=== PATIENT | female | born 1990 ===

== ENCOUNTER 2018-08-12 18:36 | Emergency (ER) | payer SELFPAY ==
[2018-08-12 21:09] VITALS: BP 130/82; PULSE 67; RESP 20; TEMP 99; O2SAT 99
--- NOTE | 2018-08-12 21:57 | ED PDOC ---
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 Otherwise, denies urinary/fecal incontinence, urinary symptoms, abdominal pain, numbness, and tingling, hematuria, h/o IVDA or malginancy LNMP: 07/23/18 PMD: none provided Past Medical History Reviewed: Historical Data, Nursing Documentation, Vital Signs Vital Signs: Last Vital Signs Temp 99 F 08/12/18 21:08 Pulse 67 08/12/18 21:08 Resp 20 08/12/18 21:08 BP 130/82 08/12/18 21:08 Pulse Ox 99 08/12/18 21:08 - Medical History PMH: No Chronic Diseases - Surgical History Surgical History: No Surg Hx - Family History Family History: States: Unknown Family Hx - Social History Current smoker - smoking cessation education provided: No Alcohol: None Drugs: Denies - Home Medications Home Medications: Ambulatory Orders Medication Instructions Recorded Cyclobenzaprine [Cyclobenzaprine 10 mg PO TID PRN #12 tab 08/12/18 HCl] Naproxen 500 mg PO BID PRN #20 tab 08/12/18 - Allergies Allergies/Adverse Reactions: Allergies Allergy/AdvReac Type Severity Reaction Status Date / Time No Known Allergies Allergy Verified 08/12/18 21:08 Review of Systems ROS Statement: Except As Marked, All Systems Reviewed And Found Negative Gastrointestinal: Negative for: Abdominal Pain Genitourinary Female: Negative for: Dysuria, Frequency, Incontinence, Hematuria Musculoskeletal: Positive for: Back Pain (lower, mostly right, radiating into buttocks and groin) Neurological: Negative for: Numbness (or tingling) Physical Exam - Reviewed Nursing Documentation Reviewed: Yes Vital Signs Reviewed: Yes - Physical Exam Comments: GENERAL APPEARANCE: Patient is awake, alert, oriented x 3, in no obvious distress. SKIN: Warm, dry; (-) cyanosis. EYES: (-) conjunctival pallor. ENMT: Mucous membranes moist. NECK: (-) tenderness, (-) stiffness, (-) lymphadenopathy. CHEST AND RESPIRATORY: (-) rales, (-) rhonchi, (-) wheezes; breath sounds equal bilaterally. HEART AND CARDIOVASCULAR: (-) irregularity; (-) murmur, (-) gallop. ABDOMEN AND GI: Soft; (-) tenderness; (-) palpable mass. BACK: (+) right sided para spinal tenderness going into gluteus, (+) mild midline tenderness from L2-L4, (-) deformity. Straight leg raising (-) bilaterally. EXTREMITIES: (-) deformity. Distal pulses good bilaterally, no groin or hip tenderness, (-)saddle anesthesia NEURO AND PSYCH: Mental status as above. molding associate: intact. Intact sensation bilaterally; normal strength in extension of the knees, plantar and dorsiflexion of the toes. DTRs symmetric. - ECG O2 Sat by Pulse Oximetry: 99 (RA) Pulse Ox Interpretation: Normal Medical Decision Making Medical Decision Making: Time: 2132 Initial Impression: back pain Initial Plan: --U-preg --Lumbar spine XR --Flexeril 10mg PO and Toradol 30mg IM (pt not driving) --Reevaluation 2319 Xr reviewed by me no acute fx, dislocation or DJD on re eval pt is feeling better discussed results, diagnosis, treatment, return precautions and f/u with pt who is understanding, in agreement and stable for dc Scribe Attestation: Documented by Gena Jansen, acting as a scribe for Derrek Paul PA-C. Provider Scribe Attestation: All medical record entries made by the Scribe were at my direction and personally dictated by me. I have reviewed the chart and agree that the record accurately reflects my personal performance of the history, physical exam, medical decision making, and the department course for this patient. I have also personally directed, reviewed, and agree with the discharge instructions and disposition. Disposition - Clinical Impression Clinical Impression: Low back pain, Back strain - Patient ED Disposition Is Patient to be Admitted: No Counseled Patient/Family Regarding: Studies Performed, Diagnosis, Need For Followup, Rx Given - Disposition Referrals: [facility] [Outside] Golden Schuler III, MD [Staff Provider] - Disposition: Routine/Home Disposition Time: 23:27 Condition: IMPROVED Additional Instructions: Regrese a la ED para sntomas nuevos o que empeoran, fiebre> 100.4, entumecimiento u hormigueo, incontinencia urinaria o intestinal, no puede caminar. Sabas un seguimiento con la clnica u ortopedista en 3-5 cornelius. Descanse, evite levantar objetos pesados ??o realizar actividades extenuantes janiya jhonatan semana. Use almohadillas trmicas y duchas de [place] para ayudar a calmar los msculos. [employer] los medicamentos segn lo prescrito. No conduzca ni rich alcohol cuando est tomando flexeril.Return to ED for new or worsening symptoms, fever >100.4, numbness or tingling, urinary or bowel incontinence, unable to walk. Follow up with the clinic or and orthopedist in 3-5 days. Rest, avoid heavy lifting or strenuous activity for one week. Use heating pads and hot showers to help soothe muscles. Take medications as prescribed. Do not drive or drink alcohol when taking flexeril Prescriptions: Cyclobenzaprine [Cyclobenzaprine HCl] 10 mg PO TID PRN #12 tab PRN Reason: Muscle Spasm Naproxen 500 mg PO BID PRN #20 tab PRN Reason: Pain, Moderate (4-7) Instructions: Muscle Strain, Low Back Pain in Adults Forms: [employer] ([place]an), [facility] ED School/Work Excuse Print Language: IRISH - POA Present On Arrival: None
--- NOTE | 2018-08-13 13:22 | RAD ---
Date of service: 08/12/2018 PROCEDURE: Radiographs of the Lumbar Spine. HISTORY: Low back pain COMPARISON: No prior. TECHNIQUE: 5 views obtained. FINDINGS: BONES: Normal alignment. No listhesis. No fracture. DISC SPACES: Unremarkable. OTHER FINDINGS: None. IMPRESSION: Unremarkable radiographs of the lumbar spine.
== END 2018-08-12 23:32 | disposition home or self-care (01) ==
LOC: H.ER 18:36
DX: M54.9 Dorsalgia, unspecified (principal)
CPT/HCPCS: 72114; 81025; 96372; 99283; J1885